=== PATIENT | female | born 1985 | race American Indian/Alaskan Native ===

== ENCOUNTER 2020-07-27 11:11 | Emergency (ER) | payer SELFPAY ==
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
[2020-07-27 11:28] VITALS: BP 141/95
== END 2020-07-27 11:35 | disposition left against medical advice (07) ==
LOC: ED 11:11
DX: R51.9 Headache, unspecified (principal); Z53.21 Procedure and treatment not carried out due to patient leaving prior to being seen by health care provider

== ENCOUNTER 2020-10-10 23:17 | Emergency (ER) | payer SELFPAY ==
--- NOTE | 2020-10-11 01:12 | Emergency Department Report ---
Stated Complaint: HEAD BACK PAINS FALL Time Seen by Provider: 10/11/20 01:10 - HPI History of Present Illness: HPI: THis is a 34 yo female with back, chest wall pain, headache who presents with pain after being evaluated at [facility] today after fall. Patient desires stronger pain medication. Referred to out patient medicine physician. No evidence of life or limb threatening injury. Patient is discharged home with MSE - Exam Vital Signs: Vital Signs 10/11/20 00:54 Temperature 98.6 F Pulse Rate 73 Respiratory 16 Rate Blood Pressure 159/95 O2 Sat by Pulse 97 Oximetry MSE screening note: Focused history and physical exam performed. Due to findings the following was ordered: ED Disposition for MSE Clinical Impression: Fall, Chest wall pain, Headache Disposition: Z MED SCREENING EXAM-LEFT Is pt being admited?: No Does the pt Need Aspirin: No Condition: Stable Referrals: NATALIE CRUZ MD [Staff Physician] - 3-5 Days
[2020-10-11 01:33] VITALS: BP 149/93
== END 2020-10-11 02:00 | disposition left against medical advice (07) ==
LOC: ED 23:17
DX: R51.9 Headache, unspecified (principal); M54.2 Cervicalgia; M54.5 Low back pain; Z53.21 Procedure and treatment not carried out due to patient leaving prior to being seen by health care provider